=== PATIENT | female | born 1950 | race Caucasian/White ===

== ENCOUNTER 2022-09-19 13:54 | Outpatient (CLI) | payer MEDICARE, OTHER, SELFPAY ==
[2022-09-19 14:14] LABS: Basophils Percent Auto 0.6 % (0.2-1.2); Eosinophils Absolute Auto 0.1 K/mm3 (0-0.3); Eosinophils Percent Auto 0.8 % (0-4.4); Hematocrit 36.1 % (37.0-47.0); Immature Granulocyte Absolute 0.02 K/mm3 (0.00-0.031); Immature Granulocyte Percent A 0.3 % (0-0.5); Lymphocytes Absolute Auto 1.35 K/mm3 (0.9-3.2); Lymphocytes Percent Auto 20.9 % (18.3-44.2); Mean Corpuscular HGB Conc 33.2 g/dl (32-36); Mean Corpuscular Hemoglobin 30.4 pg (26-34); Mean Corpuscular Volume 91.4 fl (80-100); Mean Platelet Volume 8.6 fl (7.4-10.4); Monocytes Absolute Auto 0.4 K/mm3 (0.1-0.6); Monocytes Percent Auto 5.6 % (2.6-8.5); Neutrophils Absolute Auto 4.6 K/mm3 (1.3-6.7); Neutrophils Percent Auto 71.8 % (45.5-73.1); Platelet Count Result 297 k/mm3 (150-375); Red Blood Count 3.95 M/mm3 (4.2-5.4); Red Cell Distribution Width 12.9 % (11.5-14.5); White Blood Count 6.5 K/mm3 (4.5-10.0)
[2022-09-19 14:55] LABS: Alanine Aminotransferase 27 U/L (6-35); Albumin Level 4.9 g/dL (3.5-5.1); Alkaline Phosphatase 128 U/L (38-126); Anion Gap 10 mmol/L (8-16); Aspartate Amino Transferase 46 U/L (14-36); Bilirubin,Total 0.6 mg/dL (0.2-1.3); Blood Urea Nitrogen 23 mg/dL (7-17); Calcium 9.6 mg/dL (8.4-10.2); Carbon Dioxide 26 mmol/L (22-30); Chloride 107 mmol/L (98-107); Estimated Glomerular Filt Rate > 60; Glucose 110 mg/dL (65-110); Potassium 4.5 mmol/L (3.4-5.0); Sodium 143 mmol/L (137-145)
[2022-09-19 15:03] LABS: Immunoglobulin A 248 mg/dL (70-400); Immunoglobulin G 1395 mg/dL (700-1600); Immunoglobulin M 90 mg/dL (40-230)
[2022-09-22 06:35] LABS: Albumin 4.4 g/dL (3.8-4.8); Alpha 1 Globulin 0.3 g/dL (0.2-0.3); Alpha 2 Globulin 0.9 g/dL (0.5-0.9); Beta 1 Globulin 0.5 g/dL (0.4-0.6); Gamma Globulin 1.3 g/dL (0.8-1.7); Protein, Total 7.9 g/dL (6.1-8.1)
[2022-09-22 09:41] LABS: Kappa\\Lambda Light Chains 1.35 (0.26-1.65); Lambda Light Chain 28.8 mg/L (5.7-26.3)
== END 2022-09-19 13:55 | disposition home or self-care (01) ==
LOC: ANHLAB 13:57
PROVIDERS: PCP Internal Medicine Infectious Disease; Visit Provider Internal Medicine Hematology & Oncology
DX: D72.9 Disorder of white blood cells, unspecified (principal)
CPT/HCPCS: 36415; 80053; 82784; 83883; 84155; 84165; 85025

== ENCOUNTER 2023-03-27 13:28 | Outpatient (CLI) | payer MEDICARE, OTHER, SELFPAY ==
[2023-03-27 13:42] LABS: Basophils Percent Auto 0.5 % (0.2-1.2); Eosinophils Absolute Auto 0.1 K/mm3 (0-0.3); Eosinophils Percent Auto 1.6 % (0-4.4); Hematocrit 34.1 % (37.0-47.0); Hemoglobin 11.2 g/dL (12.0-15.0); Immature Granulocyte Absolute 0.02 K/mm3 (0.00-0.031); Immature Granulocyte Percent A 0.3 % (0-0.5); Lymphocytes Absolute Auto 1.56 K/mm3 (0.9-3.2); Lymphocytes Percent Auto 25.3 % (18.3-44.2); Mean Corpuscular HGB Conc 32.8 g/dl (32-36); Mean Corpuscular Hemoglobin 30.6 pg (26-34); Mean Corpuscular Volume 93.2 fl (80-100); Mean Platelet Volume 9.2 fl (7.4-10.4); Monocytes Absolute Auto 0.4 K/mm3 (0.1-0.6); Neutrophils Absolute Auto 4.1 K/mm3 (1.3-6.7); Neutrophils Percent Auto 66.3 % (45.5-73.1); Platelet Count Result 260 k/mm3 (150-375); Red Blood Count 3.66 M/mm3 (4.2-5.4); Red Cell Distribution Width 12.9 % (11.5-14.5); White Blood Count 6.2 K/mm3 (4.5-10.0)
[2023-03-27 14:51] LABS: Alanine Aminotransferase 19 U/L (6-35); Albumin Level 4.4 g/dL (3.5-5.1); Alkaline Phosphatase 103 U/L (38-126); Anion Gap 2 mmol/L (8-16); Aspartate Amino Transferase 28 U/L (14-36); Bilirubin,Total 0.4 mg/dL (0.2-1.3); Blood Urea Nitrogen 20 mg/dL (7-17); Calcium 9.7 mg/dL (8.4-10.2); Carbon Dioxide 28 mmol/L (22-30); Chloride 108 mmol/L (98-107); Estimated Glomerular Filt Rate 49; Glucose 106 mg/dL (65-110); Potassium 4.9 mmol/L (3.4-5.0); Sodium 138 mmol/L (137-145)
[2023-03-27 14:59] LABS: Immunoglobulin A 218 mg/dL (70-400); Immunoglobulin G 1116 mg/dL (700-1600); Immunoglobulin M 66 mg/dL (40-230)
[2023-03-27 16:39] LABS: Erythrocyte Sedimentation Rate 44 mm/hr (0-20)
[2023-03-30 10:03] LABS: Kappa\\Lambda Light Chains 1.54 (0.26-1.65); Lambda Light Chain 29.2 mg/L (5.7-26.3)
[2023-03-30 21:06] LABS: Alpha 1 Globulin 0.3 g/dL (0.2-0.3); Alpha 2 Globulin 0.8 g/dL (0.5-0.9); Beta 1 Globulin 0.5 g/dL (0.4-0.6); Gamma Globulin 1.1 g/dL (0.8-1.7); Protein, Total 7.1 g/dL (6.1-8.1)
== END 2023-03-27 13:29 | disposition home or self-care (01) ==
LOC: ANHLAB 13:31
PROVIDERS: PCP Internal Medicine Infectious Disease; Visit Provider Internal Medicine Hematology & Oncology
DX: D72.9 Disorder of white blood cells, unspecified (principal)
CPT/HCPCS: 36415; 80053; 82784; 83883; 84155; 84165; 85025; 85652

== ENCOUNTER 2024-04-01 14:51 | Outpatient (CLI) | payer MEDICARE, OTHER, SELFPAY ==
[2024-04-01 15:09] LABS: Basophils Percent Auto 0.7 % (0.2-1.2); Eosinophils Absolute Auto 0.1 K/mm3 (0-0.3); Eosinophils Percent Auto 2.1 % (0-4.4); Hematocrit 35.2 % (37.0-47.0); Hemoglobin 11.6 g/dL (12.0-15.0); Immature Granulocyte Absolute 0.02 K/mm3 (0.00-0.031); Immature Granulocyte Percent A 0.4 % (0-0.5); Lymphocytes Absolute Auto 1.59 K/mm3 (0.9-3.2); Lymphocytes Percent Auto 29.8 % (18.3-44.2); Mean Corpuscular Hemoglobin 30.5 pg (26-34); Mean Corpuscular Volume 92.6 fl (80-100); Mean Platelet Volume 8.9 fl (7.4-10.4); Monocytes Absolute Auto 0.4 K/mm3 (0.1-0.6); Monocytes Percent Auto 7.7 % (2.6-8.5); Neutrophils Absolute Auto 3.2 K/mm3 (1.3-6.7); Neutrophils Percent Auto 59.3 % (45.5-73.1); Platelet Count Result 264 k/mm3 (150-375); Red Cell Distribution Width 12.3 % (11.5-14.5); White Blood Count 5.3 K/mm3 (4.5-10.0)
[2024-04-01 16:32] LABS: Alanine Aminotransferase 19 U/L (6-35); Albumin Level 4.8 g/dL (3.5-5.1); Alkaline Phosphatase 103 U/L (38-126); Anion Gap 11 mmol/L (4-12); Aspartate Amino Transferase 29 U/L (14-36); Bilirubin,Total 0.6 mg/dL (0.2-1.3); Blood Urea Nitrogen 24 mg/dL (7-17); Calcium 9.9 mg/dL (8.4-10.2); Carbon Dioxide 24 mmol/L (22-30); Chloride 106 mmol/L (98-107); Estimated Glomerular Filt Rate > 60; Glucose 110 mg/dL (65-110); Potassium 4.5 mmol/L (3.4-5.0); Sodium 141 mmol/L (137-145)
[2024-04-01 17:19] LABS: Immunoglobulin A 184 mg/dL (70-400); Immunoglobulin G 1097 mg/dL (700-1600); Immunoglobulin M 57 mg/dL (40-230)
[2024-04-02 12:29] LABS: Lambda Light Chain 24.7 mg/L (5.7-26.3)
[2024-04-02 14:18] LABS: Protein, Total 7.3 g/dL (6.1-8.1)
[2024-04-03 09:52] LABS: Albumin 4.3 g/dL (3.8-4.8); Alpha 1 Globulin 0.3 g/dL (0.2-0.3); Alpha 2 Globulin 0.7 g/dL (0.5-0.9); Beta 1 Globulin 0.5 g/dL (0.4-0.6)
== END 2024-04-01 14:52 | disposition home or self-care (01) ==
LOC: ANHLAB 14:54
PROVIDERS: PCP Internal Medicine Infectious Disease; Visit Provider Internal Medicine Hematology & Oncology
DX: D72.9 Disorder of white blood cells, unspecified (principal)
CPT/HCPCS: 36415; 80053; 82784; 83883; 84155; 84165; 85025

== ENCOUNTER 2025-04-07 11:39 | Outpatient (CLI) | payer MEDICARE, OTHER, SELFPAY ==
--- OUTSIDE RECORDS SUMMARY | 2025-04-07 11:42 | XMS_ITS | Clinical Summary ---
Author Organization [facility] Amy Carranzadusty Address [address] [place] [address] Care Team Providers Care Appeals Manager Name Role Phone Unavailable Primary Care Provider Unavailabl e Allergies No known active allergies Medications amLODIPine (NORVASC) 10 mg tablet 10 mg every 24 hours. Active aspirin (ECOTRIN EC) 81 mg Tablet, Delayed Release (E.C.) every 24 hours. Active metoprolol succinate (TOPROL XL) 100 mg Extended Release 24 hour tablet every 24 hours. Active lovastatin (MEVACOR) 20 mg tablet every 24 hours. Active lisinopriL (PRINIVIL) 40 mg tablet every 24 hours. Active cloNIDine HCL (CATAPRES) 0.3 mg tablet 2 times daily. Active Active Problems Problem Noted Date Diagnosed Date Diabetes mellitus 09/19/2022 Essential hypertension 09/19/2022 High cholesterol 09/19/2022 Encounters Date Type Department Care Team Description 03/31/2025 External Device Data [facility] ABSTRACTION Provider, Abstract 03/31/2025 External Device Data [facility] ABSTRACTION Provider, Abstract 03/02/2025 External Device Data [facility] ABSTRACTION Provider, Abstract 02/04/2025 External Device Data [facility] ABSTRACTION Provider, Abstract from Last 3 Months Family History Medical History Relation Name Comments Hypertension Brother No Known Problems Daughter 1 No Known Problems Daughter 2 No Known Problems Father No Known Problems Mother Breast Cancer Sister 1 No Known Problems Sister 2 No Known Problems Son 1 No Known Problems Son 2 No Known Problems Son 3 Defects Son 4 Relation Name Status Comments Brother Alive Daughter 1 Alive Daughter 2 Alive Father Mother Sister 1 Sister 2 Alive Son 1 Alive Son 2 Alive Son 3 Alive Son 4 Social History Tobacco Use Types Packs/Day Years Used Date Smoking Tobacco: Never Smokeless Tobacco: Never Tobacco Cessation:Counseling Given: Not Answered Alcohol Use Standard Drinks/Week Comments Never 0 (1 standard drink = 0.6 oz pur e alcohol) Comments Unknown Sex and Gender Information Value Date Recorded Sex Assigned at Not on file Legal Sex Female 11:03 AM [employer] Gender Identity Not on file Sexual Orientation Not on file Last Filed Vital Signs Vital Sign Reading Time Taken Comments Blood Pressure 117/62 04/07/2024 11:35 AM CDT Pulse 68 04/07/2024 11:35 AM CDT Temperature 36.7 C (98 F) 04/07/2024 11:35 AM CDT Respiratory Rate 14 04/07/2024 11:35 AM CDT Oxygen Saturation 97% 04/07/2024 11:35 AM CDT Inhaled Oxygen Concentration - - Weight 59.2 kg (130 lb 9.6 oz) 04/07/2024 11:35 AM CDT Height 152.4 cm (5') 04/03/2023 11:09 AM CDT Body Mass Index 25.51 04/03/2023 11:09 AM CDT Plan of Treatment Upcoming Encounters Date Type Department Care Team (Late st Contact Info) Description 04/13/2025 11:45 AM CDT Office Visit [facility] - [place] [address] [facility] [address] [place] [address] Clayton Vega MD [address] [place] [address] Health Maintenance Due Date Last Done Comments DIABETES ANNUAL FOOT EXAM 1969 DIABETES MICROALBUMIN ANNUAL SCREEN 1969 LDL CHOLESTEROL ANNUAL 1969 Traditional Medicare (ACO) A nnual Wellness Visit 1970 FIT-DNA Q 3 years 01/17/1996 FIT/FOBT Q 1 year 01/17/1996 Flex Sig/CT Colonography Q 5 years 01/17/1996 RSV VACCINE (60+ or ) (1 - Risk 60-74 years 1-dose series) 2011 ZOSTER VACCINE (1 of 2) 08/17/2015 06/22/2015, 06/21 OSTEOPOROSIS SCREENING 01/17/2016 BREAST CANCER SCREENING 08/30/2023 08/30/20 22, 08/30/2022, 09/05/2021, Additional history exists COVID-19 Vaccine (2023-2 5 season) 2024 06/29/2023, 03/13/2022, 09/11/2021, Additional history exists DIABETES HBA1C Q 6 MONTHS 10/22/20242023, 08/21/2023, 02/19/2023, Additional history exists INFLUENZA VACCINE (#1) 2025 , 07/05/2022, 06/20/2021, Additional history exists DIABETES ANNUAL RETINAL EXAM 07/13/2025, 10/25/2023, 09/23/2023, Additional history exists COLORECTAL SCREENING 09/25/2031 09/25/2021, 09/24/2021, 07/22/2018 Colorectal Cancer Screening 09/25/2031 DTAP/TDAP/TD VACCINES (4 - T d or Tdap) 07/05/2032 07/05/2022, 03/10/2015, 09/16/2006 PNEUMOCOCCAL VACCINE 50+ YEARS Completed 1 , 06/22/2016, 09/05/2015, Additional history exists Insurance MEDICARE PART A AND B MEDICARE PART A AND B [facility]
--- OUTSIDE RECORDS SUMMARY | 2025-04-07 11:42 | XMS_ITS | Data Portability ---
Author Organization [facility] LILIANAAngel [facility] Address [address] [place] [address] Assessment No assessment recorded. Plan of Treatment Reminders Order Date Submit Date Provider Last Modified By Organization Details Last Modified Time Details Appointments ANY 15 2024 10:45A Tia Elmore MD Not available Not available Not available Lab CBC 2024 025 [facility], [address] [place] [address], [facility] [address], [place], [address], 11/04/2024 10:13:22 basic metabolic 1998 panel, serum or plasma 2024 025 [facility], [address] [place] [address], [facility] [address], [place], [address], 11/04/2024 10:13:20 vitamin D, 25-hydrox y, total, serum 2024 025 [facility], [address] [place] [address], [facility] [address], [place], [address], 11/04/2024 10:13:24 HbA1c (hemoglob in A1c), blood 2024 025 [facility], [facility] [address], [place], [address], 11/04/2024 10:13:21 microalbu min/creat inine, mass ratio, urine 2024 025 [facility], [address] [place] [address], [address], [place], [address], 11/04/2024 10:13:17 lipid panel, serum 2024 025 [facility], [address], [address], [place], [address], 11/04/2024 10:13:18 HbA1c (hemoglob in A1c), blood 2023 024 [facility], [address], [address], [place], [address], 04/22/2024 08:25:51 lipid panel, serum 2023 024 [facility], [address], [address], [place], [address], 04/22/2024 08:25:50 CBC w/ auto diff 2022 023 [facility], [address], [address], [place], [address], 08/22/2023 08:27:13 basic metabolic 1998 panel, serum or plasma 2022 023 [facility], [address], [address], [place], [address], 08/22/2023 08:27:12 HbA1c (hemoglob in A1c), blood 2022 023 [facility], [address], [address], [place], [address], 08/22/2023 06:18:28 lipid panel, serum 2022 023 [facility], [address], [address], [place], [address], 08/22/2023 08:27:10 Referral diabetic ophthalmo logy referral - HBA1C 5.9% 2022 023 [facility], [address], [place], [address], 09/27/2023 08:49:17 Procedures None recorded. Surgeries None recorded. Imaging DEXA 2024 025 [facility] ([facility]), [address] [place], [address], 11/17/2024 17:39:46 US, neck, soft tissue - L. Tonsilar lymphaden opathy 2022 023 [facility] ([facility]), [address] [place], [address], 09/06/2023 16:33:43 MAMMO, screening , bilateral 2022 023 [facility] ([facility]), [address] [place], [address], 04/09/2024 14:43:29 Medication Orders None recorded. Patient TargetsNo targets recorded. Patient Instructions Encounter Date Encounter Id Patient Instructions Last Modified By Organization Details Last Modified Time 04/10/2023 [id number] B12 & Iron as recommended by the industrial diamond polisher. Weight check in 3 months Follow up as scheduled oajao Not available 04/10/2023 10:53:07 08/21/2023 [id number] vaheenda c MO usar un cond n femenino - [learning how to use a female condom] oajao Not available 08/21/2023 12:22:03 learning about breast cancer screening oajao Not available 08/21/2023 12:22:03 Labs [facility] Ophthalmology US Follow up in 4-6 weeks oajao Not available 08/21/2023 12:23:42 10/04/2023 [id number] Follow up in 6 months and PRN oajao Not available 10/04/2023 12:01:12 04/06/2024 [id number] Labs Seasonal COVID vaccine Follow up in 6 months and PRN oajao Not available 04/06/2024 13:12:48 11/03/2024 [id number] Labs DEXA COVID vaccine (She plans to get it a local pharmacy) Follow up in 6 months and PRN oaluceroo Not available 11/03/2024 13:25:44 Reason for Referral Diabetic Ophthalmology Refer ral for History of diabetes mellitus HBA1C 5.9% HBA1C 5.9% Referring Physician: Onur Elmore, Internal Medicine, Encounter Date: 08/21/2023 Results Created Date Observation Date Name Description Value Unit Range Abnormal Flag Note LastModifiedBy Organization Detail LastModifiedTime 08/21/2008/22/2023 HEMOG LOBIN A1C hemoglobin A1C 5.9 % 4.8-5. 6 above high normal Predi abete s: 5.7 - 6.4 Diabe meena: >6.4 Glyce boni contr ol for adult s with diabe meena: <7.0 Not Available [facility] ([facility]) [address] [place], [address], 08/22/2023 06:18:28 08/21/2008/22/2023 LIPID PANEL cholesterol, total 151 mg/dL 100-19 9 Not Available [facility] ([facility]) [address] [place], [address], 08/22/2023 08:27:10 08/21/20 23 08/22/2023 LIPID PANEL triglyceride s 74 mg/dL 0-149 Not Available [facility] ([facility]) [address] [place], [address], 08/22/2023 08:27:10 08/21/20 23 08/22/2023 LIPID PANEL HDL cholesterol 74 mg/dL >39 Not Available [facility] ([facility]) [address] [place], [address], 08/22/2023 08:27:10 08/21/20 23 08/22/2023 LIPID PANEL VLDL cholesterol lizz 14 mg/dL 5-40 Not Available [facility] ([facility]) [address] [facility] [place], [address], 08/22/2023 08:27:10 08/21/20 23 08/22/2023 LIPID PANEL LDL chol calc ([facility]) 63 mg/dL 0-99 Not Available [facility] ([facility]) [address] [facility] [place], [address], 08/22/2023 08:27:10 08/21/20 23 08/22/2023 BASIC METAB OLIC PANEL (7) glucose 110 mg/dL 70-99 above high normal Not Available [facility] ([facility]) [address] [facility] [place], [address], 08/22/2023 08:27:12 08/21/20 23 08/22/2023 BASIC METAB OLIC PANEL (7) BUN 23 mg/dL 8-27 Not Available [facility] ([facility]) [address] [facility] [place], [address], 08/22/2023 08:27:12 08/21/20 23 08/22/2023 BASIC METAB OLIC PANEL (7) creatinine 1.00 mg/dL 0.57-1 .00 Not Available [facility] ([facility]) [address] [facility] [place], [address], 08/22/2023 08:27:12 08/21/20 23 08/22/2023 BASIC METAB OLIC PANEL (7) eGFR 60 mL/mi n/1.7 3 >59 Not Available [facility] ([facility]) [address] [facility] [place], [address], 08/22/2023 08:27:12 08/21/20 23 08/22/2023 BASIC METAB OLIC PANEL (7) BUN/creatini ne ratio 23 12-28 Not Available [facility] ([facility]) [address] [place], [address], 08/22/2023 08:27:12 08/21/20 23 08/22/2023 BASIC METAB OLIC PANEL (7) sodium 142 mmol/ L 134-14 4 Not Available [facility] ([facility]) [address] [facility], [place], [address], 08/22/2023 08:27:12 08/21/20 23 08/22/2023 BASIC METAB OLIC PANEL (7) potassium 5.2 mmol/ L 3.5-5. 2 Not Available [facility] ([facility]) [address] [facility], [place], [address], 08/22/2023 08:27:12 08/21/20 23 08/22/2023 BASIC METAB OLIC PANEL (7) chloride 105 mmol/ L 96-106 Not Available [facility] ([facility]) [address] [facility], [place], [address], 08/22/2023 08:27:12 08/21/20 23 08/22/2023 BASIC METAB OLIC PANEL (7) carbon dioxide, total 21 mmol/ L 20-29 Not Available [facility] ([facility]) [address] [facility], [place], [address], 08/22/2023 08:27:12 08/21/20 23 08/22/2023 CBC WITH DIFFE RENTI AL/PL ATELE T WBC 5.8 x10e3 /uL 3.4-10 .8 Not Available [facility] ([facility]) [address] [facility], [place], [address], 08/22/2023 08:27:13 08/21/20 23 08/22/2023 CBC WITH DIFFE RENTI AL/PL ATELE T RBC 3.81 x10e6 /uL 3.77-5 .28 Not Available [facility] ([facility]) [address] [facility], [place], [address], 08/22/2023 08:27:13 08/21/20 23 08/22/2023 CBC WITH DIFFE RENTI AL/PL ATELE T hemoglobin 11.5 g/dL 11.1-1 5.9 Not Available [facility] ([facility]) [address] [facility], [place], [address], 08/22/2023 08:27:13 08/21/20 23 08/22/2023 CBC WITH DIFFE RENTI AL/PL ATELE T hematocrit 34.9 % 34.0-4 6.6 Not Available [facility] ([facility]) [address] [facility], [place], [address], 08/22/2023 08:27:13 08/21/2008/22/2023 CBC WITH DIFFE RENTI AL/PL ATELE T MCV 92 fL 79-97 Not Available [facility] ([facility]) [address] [facility], [place], [address], 08/22/2023 08:27:13 08/21/2008/22/2023 CBC WITH DIFFE RENTI AL/PL ATELE T MCH 30.2 pg 26.6-3 3.0 Not Available [facility] ([facility]) [address] [place], [address], 08/22/2023 08:27:13 08/21/20 23 08/22/2023 CBC WITH DIFFE RENTI AL/PL ATELE T MCHC 33.0 g/dL 31.5-3 5.7 Not Available [facility] ([facility]) [address] [facility], [place], [address], 08/22/2023 08:27:13 08/21/20 23 08/22/2023 CBC WITH DIFFE RENTI AL/PL ATELE T RDW 12.5 % 11.7-1 5.4 Not Available [facility] ([facility]) [address] [place], [address], 08/22/2023 08:27:13 08/21/2008/22/2023 CBC WITH DIFFE RENTI AL/PL ATELE T platelets 291 x10e3 /uL 150-45 0 Not Available [facility] ([facility]) [address] [facility], [place], [address], 08/22/2023 08:27:13 08/21/20 23 08/22/2023 CBC WITH DIFFE RENTI AL/PL ATELE T neutrophils 60 % notest ab. Not Available [facility] ([facility]) [address] [facility], [place], [address], 08/22/2023 08:27:13 08/21/20 23 08/22/2023 CBC WITH DIFFE RENTI AL/PL ATELE T lymphs 30 % notest ab. Not Available [facility] ([facility]) [address] [facility], [place], [address], 08/22/2023 08:27:13 08/21/20 23 08/22/2023 CBC WITH DIFFE RENTI AL/PL ATELE T monocytes 7 % notest ab. Not Available [facility] ([facility]) [address] [facility], [place], [address], 08/22/2023 08:27:13 08/21/20 23 08/22/2023 CBC WITH DIFFE RENTI AL/PL ATELE T eos 2 % notest ab. Not Available [facility] ([facility]) [address] [facility], [place], [address], 08/22/2023 08:27:13 08/21/20 23 08/22/2023 CBC WITH DIFFE RENTI AL/PL ATELE T basos 1 % notest ab. Not Available [facility] ([facility]) [address] [facility], [place], [address], 08/22/2023 08:27:13 08/21/20 23 08/22/2023 CBC WITH DIFFE RENTI AL/PL ATELE T neutrophils (absolute) 3.5 x10e3 /uL 1.4-7. 0 Not Available [facility] ([facility]) [address] [facility], [place], [address], 08/22/2023 08:27:13 08/21/20 23 08/22/2023 CBC WITH DIFFE RENTI AL/PL ATELE T lymphs (absolute) 1.7 x10e3 /uL 0.7-3. 1 Not Available [facility] ([facility]) [address] [facility], [place], [address], 08/22/2023 08:27:13 08/21/20 23 08/22/2023 CBC WITH DIFFE RENTI AL/PL ATELE T monocytes(ab solute) 0.4 x10e3 /uL 0.1-0. 9 Not Available [facility] ([facility]) [address] [facility], [place], [address], 08/22/2023 08:27:13 08/21/20 23 08/22/2023 CBC WITH DIFFE RENTI AL/PL ATELE T eos (absolute) 0.1 x10e3 /uL 0.0-0. 4 Not Available [facility] ([facility]) [address] [facility], [place], [address], 08/22/2023 08:27:13 08/21/20 23 08/22/2023 CBC WITH DIFFE RENTI AL/PL ATELE T baso (absolute) 0.0 x10e3 /uL 0.0-0. 2 Not Available [facility] ([facility]) [address] [facility], [place], [address], 08/22/2023 08:27:13 08/21/20 23 08/22/2023 CBC WITH DIFFE RENTI AL/PL ATELE T immature granulocytes 0 % notest ab. Not Available [facility] ([facility]) [address] [facility], [place], [address], 08/22/2023 08:27:13 08/21/20 23 08/22/2023 CBC WITH DIFFE RENTI AL/PL ATELE T immature grans (abs) 0.0 x10e3 /uL 0.0-0. 1 Not Available [facility] ([facility]) [address] [place], [address], 08/22/2023 08:27:13 04/21/20 24 04/22/2024 LIPID PANEL cholesterol, total 131 mg/dL 100-19 9 Not Available [facility] ([facility]) [address] [facility], [place], [address], 04/22/2024 08:25:50 04/21/20 24 04/22/2024 LIPID PANEL triglyceride s 62 mg/dL 0-149 Not Available [facility] ([facility]) [address] [place], [address], 04/22/2024 08:25:50 04/21/20 24 04/22/2024 LIPID PANEL HDL cholesterol 61 mg/dL >39 Not Available [facility] ([facility]) [address] [place], [address], 04/22/2024 08:25:50 04/21/20 24 04/22/2024 LIPID PANEL VLDL cholesterol lizz 13 mg/dL 5-40 Not Available [facility] ([facility]) [address] [place], [address], 04/22/2024 08:25:50 04/21/20 24 04/22/2024 LIPID PANEL LDL chol calc ([facility]) 57 mg/dL 0-99 Not Available [facility] ([facility]) [address] [place], [address], 04/22/2024 08:25:50 04/21/20 24 04/22/2024 HEMOG LOBIN A1C hemoglobin A1C 5.7 % 4.8-5. 6 above high normal Predi abete s: 5.7 - 6.4 Diabe meena: >6.4 Glyce boni contr ol for adult s with diabe meena: <7.0 Not Available [facility] ([facility]) [address] [place], [address], 04/22/2024 08:25:51 11/03/19 25 11/04/2024 ALBUM IN/CR EAT RATIO , RANDO M UR creatinine, urine 136.5 mg/dL notest ab. Not Available [facility] ([facility]) [address] [place], [address], 11/04/2024 10:13:17 11/03/19 25 11/04/2024 ALBUM IN/CR EAT RATIO , RANDO M UR albumin, urine 37.1 ug/mL notest ab. Not Available [facility] ([facility]) [address] [place], [address], 11/04/2024 10:13:17 11/03/19 25 11/04/2024 ALBUM IN/CR EAT RATIO , RANDO M UR alb/creat ratio 27 mg/g_ creat 0-29 Ann l: 0 - 29 Moder ately incre ased: 30 - 300 Sever bettina incre ased: >300 Not Available [facility] ([facility]) [address] [place], [address], 11/04/2024 10:13:17 11/03/19 25 11/04/2024 LIPID PANEL cholesterol, total 148 mg/dL 100-19 9 Not Available [facility] ([facility]) [address] [place], [address], 11/04/2024 10:13:18 11/03/19 25 11/04/2024 LIPID PANEL triglyceride s 62 mg/dL 0-149 Not Available [facility] ([facility]) [address] [place], [address], 11/04/2024 10:13:18 11/03/19 25 11/04/2024 LIPID PANEL HDL cholesterol 73 mg/dL >39 Not Available [facility] ([facility]) [address] [place], [address], 11/04/2024 10:13:18 11/03/19 25 11/04/2024 LIPID PANEL VLDL cholesterol lizz 13 mg/dL 5-40 Not Available [facility] ([facility]) [address] [place], [address], 11/04/2024 10:13:18 11/03/19 25 11/04/2024 LIPID PANEL LDL chol calc ([facility]) 62 mg/dL 0-99 Not Available [facility] ([facility]) [address] [place], [address], 11/04/2024 10:13:18 11/03/19 25 11/04/2024 BASIC METAB OLIC PANEL (7) glucose 106 mg/dL 70-99 above high normal Not Available [facility] ([facility]) [address] [place], [address], 11/04/2024 10:13:19 11/03/19 25 11/04/2024 BASIC METAB OLIC PANEL (7) BUN 24 mg/dL 8-27 Not Available [facility] ([facility]) [address] [place], [address], 11/04/2024 10:13:19 11/03/19 25 11/04/2024 BASIC METAB OLIC PANEL (7) creatinine 1.02 mg/dL 0.57-1 .00 above high normal Not Available [facility] ([facility]) [address] [place], [address], 11/04/2024 10:13:19 11/03/19 25 11/04/2024 BASIC METAB OLIC PANEL (7) eGFR 58 mL/mi n/1.7 3 >59 below low normal Not Available [facility] ([facility]) [address] [place], [address], 11/04/2024 10:13:19 11/03/19 25 11/04/2024 BASIC METAB OLIC PANEL (7) BUN/creatini ne ratio 24 12-28 Not Available [facility] ([facility]) [address] [place], [address], 11/04/2024 10:13:19 11/03/19 25 11/04/2024 BASIC METAB OLIC PANEL (7) sodium 143 mmol/ L 134-14 4 Not Available [facility] ([facility]) [address] [place], [address], 11/04/2024 10:13:19 11/03/19 25 11/04/2024 BASIC METAB OLIC PANEL (7) potassium 5.1 mmol/ L 3.5-5. 2 Not Available [facility] ([facility]) [address] [place], [address], 11/04/2024 10:13:19 11/03/19 25 11/04/2024 BASIC METAB OLIC PANEL (7) chloride 105 mmol/ L 96-106 Not Available [facility] ([facility]) [address] [place], [address], 11/04/2024 10:13:19 11/03/19 25 11/04/2024 BASIC METAB OLIC PANEL (7) carbon dioxide, total 23 mmol/ L 20-29 Not Available [facility] ([facility]) [address] [place], [address], 11/04/2024 10:13:19 11/03/19 25 11/04/2024 HEMOG LOBIN A1C hemoglobin A1C 5.9 % 4.8-5. 6 above high normal Predi abete s: 5.7 - 6.4 Diabe meena: >6.4 Glyce boni contr ol for adult s with diabe meena: <7.0 Not Available [facility] ([facility]) [address] [place], [address], 11/04/2024 10:13:21 11/03/19 25 11/04/2024 CBC, PLATE LET, NO DIFFE RENTI AL WBC 5.5 x10e3 /uL 3.4-10 .8 Not Available [facility] ([facility]) [address] [facility], [place], [address], 11/04/2024 10:13:22 11/03/19 25 11/04/2024 CBC, PLATE LET, NO DIFFE RENTI AL RBC 4.04 x10e6 /uL 3.77-5 .28 Not Available [facility] ([facility]) [address] [facility], [place], [address], 11/04/2024 10:13:22 11/03/19 25 11/04/2024 CBC, PLATE LET, NO DIFFE RENTI AL hemoglobin 12.1 g/dL 11.1-1 5.9 Not Available [facility] ([facility]) [address] [facility], [place], [address], 11/04/2024 10:13:22 11/03/19 25 11/04/2024 CBC, PLATE LET, NO DIFFE RENTI AL hematocrit 37.1 % 34.0-4 6.6 Not Available [facility] ([facility]) [address] [facility], [place], [address], 11/04/2024 10:13:22 11/03/19 25 11/04/2024 CBC, PLATE LET, NO DIFFE RENTI AL MCV 92 fL 79-97 Not Available [facility] ([facility]) [address] [facility], [place], [address], 11/04/2024 10:13:22 11/03/19 25 11/04/2024 CBC, PLATE LET, NO DIFFE RENTI AL MCH 30.0 pg 26.6-3 3.0 Not Available [facility] ([facility]) [address] [place], [address], 11/04/2024 10:13:22 11/03/19 25 11/04/2024 CBC, PLATE LET, NO DIFFE RENTI AL MCHC 32.6 g/dL 31.5-3 5.7 Not Available [facility] ([facility]) [address] [facility], [place], [address], 11/04/2024 10:13:22 11/03/19 25 11/04/2024 CBC, PLATE LET, NO DIFFE RENTI AL RDW 12.0 % 11.7-1 5.4 Not Available [facility] ([facility]) [address] [facility], [place], [address], 11/04/2024 10:13:22 11/03/1911/04/2024 CBC, PLATE LET, NO DIFFE RENTI AL platelets 282 x10e3 /uL 150-45 0 Not Available [facility] ([facility]) [address] [place], [address], 11/04/2024 10:13:22 11/03/19 25 11/04/2024 VITAM IN D, 25-HY DROXY vitamin D, 25-hydroxy 35.4 NG/mL 30.0-1 00.0 Vitam in D defic iency has been defin ed by the Insti tute of Medic ine and an Endoc rine Socie ty pract ice guide line as a level of serum 25-OH vitam in D less than 20 ng/mL (1,2) . The Endoc rine Socie ty went on to formerly [facility] er defin e vitam in D insuf ficie ncy as a level betwe en 21 and 29 ng/mL (2). 1. IOM (Inst itute of Medic ine). 2010. Dieta ry refer ence intak es for calci um and D. Benson garcia [place]: The [facility] Press . 2. Brady culver MF, Raquel rogers [place], Alverto off-F errjorge i JEFFRIES, et al. Evalu ation , treat ment, and preve ntion of vitam in D defic iency : an Endoc rine Socie ty clini lizz pract ice guide line. JCEM. 2010; 96(7) :1911 -30. Not Available [facility] ([facility]) [address], [place], [address], 11/04/2024 10:13:24 09/06/20 23 09/06/2023 US, neck, soft tissu e No observ ation record ed. [facility] [address] [place], [address], 10/04/2023 11:55:11 11/18/19 25 11/17/2024 DEXA No observ ation record ed. [facility] [address] [place], [address], 11/25/2024 10:38:45 Result Notes None recorded. Problems Name Problem SNOMED Code Status Onset Date Resolution Date Notes Provider Name and Address Organization Details Recorded Time Night sweats 82699723 Active Not Available [facility] 3 05:50:13 Disorder of lipid metabolism 312063041 Active Not Available [facility] 3 05:50:13 Diabetes mellitus 74556434 Completed 01/03/2018 Onur Elmore MD Attn: Accounting ,[address], [place], [address] , [facility] 8 15:30:30 Laboratory test result abnormal 523364827 Active Not Available [facility] 3 05:50:13 Essential hypertensi on 08379220 Active Not Available [facility] 3 05:50:13 Tinnitus 84335416 Active Not Available [facility] 3 05:50:13 Impaired fasting glycemia 598615496 Active Not Available [facility] 3 05:50:13 Polyp of colon 17779941 Active 2017 Not Available [facility] 3 05:50:13 Labile hypertensi on due to being in a clinical environmen t 859679810 Active 2018 Not Available [facility] 3 05:50:13 History of diabetes mellitus 995193596 Active 2018 Not Available [facility] 3 05:50:13 Polyp of cecum 598617248 Active 2020 Not Available [facility] 3 05:50:13 Renal insufficie ncy 964280958 Active 2021 Not Available [facility] 3 05:50:13 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 Procedures Surgical History Date Name Laterality Status Provider Name and Address Organization Details Recorded Time 04/06/20 24 Diabetic Foot Exam completed Onur Elmore MD Attn: Accounting, [address] [place], [address], [place] [facility] 04/06/2024 14:23:50 09/25/19 22 Colonoscopy completed Onur Elmore MD Attn: Accounting, [address] [place], [address], [place] [facility] 07/19/2022 11:54:14 07/23/20 18 colonoscopy completed Onur Elmore MD Attn: Accounting, [address] [place], [address], [place] [facility] 10/26/2020 12:14:21 Cholecystectomy completed Onur Elmore MD Attn: Accounting, [address] [place], [address], [place] [facility] 09/02/2015 16:27:16 Tubal Ligation completed Onur Elmore MD Attn: Accounting, [address] [place], [address], [place] [facility] 09/02/2015 16:27:16 Imaging Results None recorded. Procedure Notes None recorded. Medical Equipment None Reported. Allergies Allergen ID Allergen Name Allergen Category Reaction Reaction Severity Criticality Documentation Date Start Date Code Code System Note Provider Name and Address Organization Details Recorded Time 736706 No known allergy (situatio n) Not available Not available Not available Not available 02/19/2022 [id number] SNOMED Onur Elmore MD Attn: Accountin g,[address] [place], [address], [place] [facility] 11:57:38 No known drug allergies Medications Name Sig Start Date Stop Date Status Note LastModified by Organization Details LastModified Time metoprolol tartrate 100 mg tablet Take 1 tablet by oral route. 02/19 completed Not Available Not Available Not Available flurbiprof en 0.03 % eye drops INSTILL 1 DROP 4 TIMES DAILY INTO SURGICAL EYE FOR 2 WEEKS FOLLOWING SURGERY 04/06 completed Not Available Not Available Not Available ondansetro n HCl 4 mg tablet TAKE 1 TABLET BY MOUTH EVERY 8 HOURS 08/21 completed Not Available Not Available Not Available clonidine HCl 0.3 mg tablet Take 1 tablet by mouth twice daily 2024 active Not Available Not Available Not Avai lable metoprolol succinate ER 100 mg tablet,ext ended release 24 hr Take 1 tablet by mouth once daily 2024 active Not Available Not Available Not Avai lable aspirin 81 mg tablet,del ayed release 1 tablet by oral route. 2021 active Not Available Not Available Not Avai lable prednisolo ne acetate 1 % eye drops,susp ension INSTILL 1 DROP INTO SURGUCAL EYE 3 TIMES DAILY STARTING AFTER SURGERY AND CONTINUIN G FOR 3 WEEKS 04/06 completed Not Available Not Available Not Available ciprofloxa jess 0.3 % eye drops INSTILL 1 DROP INTO SURGICAL EYE 3 TIMES DAILY BEGINNING 2 DAYS PRIOR TO SURGERY AND CONTINUIN G 1 WEEK AFTER 04/06 completed Not Available Not Available Not Available meclizine 25 mg tablet TAKE 1 TABLET BY MOUTH EVERY 8 HOURS NEEDED 08/21 completed Not Available Not Available Not Available amlodipine 10 mg tablet Take 1 tablet by mouth once daily 2024 active Not Available Not Available Not Avai lable lisinopril 10 mg tablet one po daily 03/09 completed Not Available Not Available Not Available hydrocorti sone 2.5 % topical cream APPLY A THIN LAYER TO THE AFFECTED AREA(S) BY TOPICAL ROUTE 2 TIMES PER DAY 08/28 completed pt never used Not Available Not Available Not Available lisinopril 5 mg tablet TAKE ONE TABLET BY MOUTH ONCE DAILY 01/07 completed Not Available Not Available Not Available lovastatin 20 mg tablet Take 1 tablet by mouth once daily 2024 active Not Available Not Available Not Avai lable lisinopril 40 mg tablet Take 1 tablet by mouth once daily 2024 active Not Available Not Available Not Avai lable iron active Not Available Not Availa ble Not Available Aspir-81 02/19 completed Not Available Not Available Not Available B12 active Not Available Not Availa ble Not Available Vitamin D3 50 mcg (2,000 unit) capsule Take 1 capsule every day by oral route as directed for 30 days. 05/10 completed Not Available Not Available Not Available Azo Cranberry 08/21 completed Not Available Not Available Not Available Fluad Quad ( 65yr up)(PF) 60 mcg (15 mcg x 4)/0.5mL IM syringe ADM 0.5ML IM UTD 10/26 completed Not Available Not Available Not Available Vitals Date Recorded Body height Respiratory rate Heart rate Oxygen saturation Oxygen saturation in Arterial blood by Pulse oximetry Body mass index (BMI) Body weight Systolic And Diastolic Provider Name and Address Organization Details Last Updated DateTime 4 160.02 cm 16 /min 72 /min 99 % 99 % 24.4 kg/m2 51012.0 3 g 126/72 mm[Hg] Allison Hahn MA [facility] 4 11:54:07 Date Recorded Body height Body mass index (BMI) Body weight Heart rate Oxygen saturation Oxygen saturation in Arterial blood by Pulse oximetry Respiratory rate Body temperature Systolic And Diastolic Provider Name and Address Organization Details Last Updated DateTime 5 160.02 cm 23.2 kg/m2 69784.5 2 g 72 /min 97 % 97 % 16 /min 97.7 [degF] 140/70 mm[Hg] Karlene Dobbins MA [facility] 5 12:48:23 Date Recorded Body height Body mass index (BMI) Body weight Heart rate Oxygen saturation Oxygen saturation in Arterial blood by Pulse oximetry Respiratory rate Systolic And Diastolic Provider Name and Address Organization Details Last Updated DateTime 4 160.02 cm 23.1 kg/m2 95077.0 9 g 70 /min 98 % 98 % 14 /min 126/68 mm[Hg] JOVANNA Meyers [facility] 4 12:46:54 Date Recorded Body height Body mass index (BMI) Body weight Heart rate Oxygen saturation Oxygen saturation in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
[2025-04-07 11:58] LABS: Hematocrit 34.1 % (37.0-47.0); Hemoglobin 11.7 g/dL (12.0-15.0); Immature Granulocyte Percent A 0.3 % (0-0.5); Lymphocytes Absolute Auto 1.76 K/mm3 (0.9-3.2); Mean Corpuscular HGB Conc 34.3 g/dl (32-36); Mean Corpuscular Hemoglobin 31.4 pg (26-34); Mean Corpuscular Volume 91.4 fl (80-100); Nucleated Red Blood Cells Absolute Auto 0.000 K/mm3 (0.0-0.012); Nucleated Red Blood Cells Perc 0.0 % (0.0-0.2); Platelet Count Result 251 k/mm3 (150-375); Red Blood Count 3.73 M/mm3 (4.2-5.4); White Blood Count 5.9 K/mm3 (4.5-10.0)
[2025-04-07 12:19] LABS: Alanine Aminotransferase 30 U/L (6-35); Albumin Level 4.6 g/dL (3.5-5.1); Alkaline Phosphatase 106 U/L (38-126); Anion Gap 11 mmol/L (4-12); Aspartate Amino Transferase 42 U/L (14-36); Bilirubin,Total 0.4 mg/dL (0.2-1.3); Blood Urea Nitrogen 20 mg/dL (7-17); Calcium 10.2 mg/dL (8.4-10.2); Carbon Dioxide 24 mmol/L (22-30); Chloride 102 mmol/L (98-107); Estimated Glomerular Filt Rate 58; Glucose 115 mg/dL (65-110); Potassium 4.8 mmol/L (3.4-5.0); Sodium 137 mmol/L (137-145); Total Protein 8.3 g/dL (6.3-8.2)
[2025-04-07 12:28] LABS: Immunoglobulin A 159 mg/dL (70-400); Immunoglobulin G 1282 mg/dL (700-1600); Immunoglobulin M 60 mg/dL (40-230)
[2025-04-08 14:08] LABS: Albumin 3.9 g/dL (2.9-4.4); Alpha-1-Globulin 0.3 g/dL (0.0-0.4); Alpha-2-Globulin 0.8 g/dL (0.4-1.0); Gamma Globulin 1.1 g/dL (0.4-1.8)
== END 2025-04-07 11:40 | disposition home or self-care (01) ==
PROVIDERS: PCP Internal Medicine Infectious Disease; Visit Provider Internal Medicine Hematology & Oncology
DX: D72.9 Disorder of white blood cells, unspecified (principal)
CPT/HCPCS: 36415; 80053; 82784; 84165; 85025